=== PATIENT | female | born 1950 | race Two or more races ===

== ENCOUNTER 2021-01-31 08:28 | Emergency (ER) | payer MEDICARE ==
[~2021-01-31] VITALS: Ht 147.3 cm; Wt 50.9 kg
[2021-01-31] MEDS ORDERED: IV NORMAL SALINE 500ML BAG 500 ML IV ONE (09:00)
[2021-01-31] MEDS ORDERED: IPRATRPIUM/ALBUTEROL 0.5/2.5MG 3 ML NEBU. NEB ONE (09:00)
[2021-01-31] MEDS ORDERED: methylPREDNISolone SOD SUCC PF 125 MG/2 ML VIAL. IV ONE (09:00)
[2021-01-31 09:03] LABS: BASO % 1 % (0-3); EOS # 0.4 x10^3/uL (0.0-0.7); EOS % 7 % (0-3); HEMATOCRIT 41.4 % (36.0-47.0); HEMOGLOBIN 14.2 g/dL (12.0-15.5); LYMPH # 1.7 x10^3/uL (1.0-4.8); LYMPH % 28 % (24-48); MEAN CORPUSCULAR HEMOGLOBIN 32 pg (25-35); MEAN CORPUSCULAR HGB CONC 34 g/dL (31-37); MEAN CORPUSCULAR VOLUME 94 fL (79-100); MONO # 0.5 x10^3/uL (0.0-1.1); MONO % 8 % (0-9); NEUT # 3.4 x10^3/uL (1.8-7.7); NEUT % 56 % (31-73); PLATELET COUNT 227 x10^3/uL (140-400); RED BLOOD COUNT 4.41 x10^6/uL (3.50-5.40); RED CELL DISTRIBUTION WIDTH 14.1 % (11.5-14.5); WHITE BLOOD COUNT 6.1 x10^3/uL (4.0-11.0)
--- NOTE | 2021-01-31 09:15 | ED.ADGEN ---
Past Medical History Past Surgical History: No Surgical History Smoking Status: Current Every Day Smoker Alcohol Use: None General Adult EDM: Chief Complaint: CHEST WALL PAIN HPI: HPI: Patient is a 70 year old female coming in by private vehicle for chest tightness and shortness of breath. Patient says symptoms started last night. Says it feels like her asthma flares, has not had an asthma exacerbation for over a year. Patient has no change in her chronic baseline cough. Denies any fevers or GI complaints. Patient describes the chest tightness as a "elephant stepping on chest." She denies any other medical history, denies any cardiac history. Denies any significant medical history other than diabetes. Patient smokes about a pack of cigarettes daily and frequently uses marijuana, last use yesterday. Denies any alcohol or other drugs. Has been fully vaccinated against COVID-19 Review of Systems: Review of Systems: All other systems within normal limits except for as noted in the HPI Current Medications: Current Medications Medications (Trade) Dose Ordered Sig/Rahul Start Time Stop Time Status Last Admin Dose Admin Albuterol/ Ipratropium (Duoneb) 3 ml 1X ONCE 01/31/21 09:00 01/31/21 09:01 DC 01/31/21 09:26 3 ML Methylprednisolone Sodium Succinate (SOLU-Medrol 125MG VIAL) 125 mg 1X ONCE 01/31/21 09:00 01/31/21 09:01 DC 01/31/21 09:30 125 MG Sodium Chloride 500 ml @ 500 mls/hr 1X ONCE 01/31/21 09:00 01/31/21 09:59 DC 01/31/21 09:30 500 MLS/HR Allergies: Allergies: Allergies Coded Allergies Type Severity Reaction Last Updated Verified No Known Drug Allergies 01/31/21 No Physical Exam: PE: Constitutional: Well developed, well nourished, no acute distress, non-toxic appearance. [] HENT: Normocephalic, atraumatic, bilateral external ears normal, nose normal. [] Eyes: PERRLA, conjunctiva normal, no discharge. [] Neck: No rigidity, supple, no stridor. [] Cardiovascular: Regular rate and rhythm, brisk cap refill [] Lungs & Thorax: Non labored symmetric respirations, no tachypnea or respiratory distress. Bilateral decreased breath sounds with faint inspiratory wheezes [] Abdomen: Soft, nondistended. Skin: Warm, dry, no erythema, no rash. [] Back: Unremarkable Extremities: No deformities, range of motion grossly intact, no lower extremity edema [] Neurologic: Alert and oriented X 3, no focal deficits noted. [] Psychologic: Affect normal, judgement normal, mood normal. [] Current Patient Data: Labs: Laboratory Tests Test 01/31/21 08:48 01/31/21 09:27 01/31/21 09:57 White Blood Count 6.1 x10^3/uL (4.0-11.0) Red Blood Count 4.41 x10^6/uL (3.50-5.40) Hemoglobin 14.2 g/dL (12.0-15.5) Hematocrit 41.4 % (36.0-47.0) Mean Corpuscular Volume 94 fL (79-100) Mean Corpuscular Hemoglobin 32 pg (25-35) Mean Corpuscular Hemoglobin Concent 34 g/dL (31-37) Red Cell Distribution Width 14.1 % (11.5-14.5) Platelet Count 227 x10^3/uL (140-400) Neutrophils (%) (Auto) 56 % (31-73) Lymphocytes (%) (Auto) 28 % (24-48) Monocytes (%) (Auto) 8 % (0-9) Eosinophils (%) (Auto) 7 % (0-3) H Basophils (%) (Auto) 1 % (0-3) Neutrophils # (Auto) 3.4 x10^3/uL (1.8-7.7) Lymphocytes # (Auto) 1.7 x10^3/uL (1.0-4.8) Monocytes # (Auto) 0.5 x10^3/uL (0.0-1.1) Eosinophils # (Auto) 0.4 x10^3/uL (0.0-0.7) Basophils # (Auto) 0.0 x10^3/uL (0.0-0.2) Sodium Level 140 mmol/L (136-145) Potassium Level 3.3 mmol/L (3.5-5.1) L Chloride Level 105 mmol/L (98-107) Carbon Dioxide Level 26 mmol/L (21-32) Anion Gap 9 (6-14) Blood Urea Nitrogen 14 mg/dL (7-20) Creatinine 0.7 mg/dL (0.6-1.0) Estimated GFR (Cockcroft-Gault) 83.2 BUN/Creatinine Ratio 20 (6-20) Glucose Level 107 mg/dL (70-99) H Calcium Level 8.5 mg/dL (8.5-10.1) Magnesium Level 2.0 mg/dL (1.8-2.4) Total Bilirubin 0.4 mg/dL (0.2-1.0) Aspartate Amino Transferase (AST) 23 U/L (15-37) Alanine Aminotransferase (ALT) 31 U/L (14-59) Alkaline Phosphatase 81 U/L (46-116) Troponin I Quantitative < 0.017 ng/mL (0.000-0.055) LZ-Djp-J-Type Natriuretic Peptide 278 pg/mL (0-124) H Total Protein 6.5 g/dL (6.4-8.2) Albumin 3.6 g/dL (3.4-5.0) Albumin/Globulin Ratio 1.2 (1.0-1.7) O2 Saturation 97 % (92-99) Arterial Blood pH 7.48 (7.35-7.45) H Arterial Blood pCO2 at Patient Temp 26 mmHg (35-46) L Arterial Blood pO2 at Patient Temp 91 mmHg (65-108) Arterial Blood HCO3 19 mmol/L (21-28) L Arterial Blood Base Excess -3 mmol/L (-3-3) FiO2 21 Laboratory Tests 01/31/21 08:48 Laboratory Tests 01/31/21 09:27 Vital Signs: Vital Signs Date Time Temp Pulse Resp B/P (MAP) Pulse Ox O2 Delivery O2 Flow Rate FiO2 01/31/21 09:27 97 Room Air 01/31/21 08:43 97.7 70 24 138/74 (95) 97.7 EKG: EKG: Sinus rhythm, heart rate 60 bpm, left axis deviation, no ST elevation or depression, no ectopy normal intervals [] Heart Score: C/O Chest Pain: Yes HEART Score for Chest Pain: HEART Score for Chest Pain Response (Comments) Value History Slighlty/Non-Suspicious 0 ECG Normal 0 Age > 65 2 Risk Factors 1 or 2 Risk Factors 1 Troponin < Normal Limit 0 Total 3 Risk Factors: Risk Factors: DM, Current or recent (<one month) smoker, HTN, HLP, family history of CAD, obesity. Risk Scores: Score 0 - 3: 2.5% MACE over next 6 weeks - Discharge Home Score 4 - 6: 20.3% MACE over next 6 weeks - Admit for Clinical Observation Score 7 - 10: 72.7% MACE over next 6 weeks - Early Invasive Strategies Radiology/Procedures: Radiology/Procedures: [facility] [address] [place] [address] IMAGING REPORT Signed PATIENT: ALON KOHLI ACCOUNT: [id number] : 1950 LOCATION: ER AGE: 70 SEX: F EXAM STATUS: REG ER ORD. PHYSICIAN: MARC BRICE MD REASON: asthma PROCEDURE: CHEST PA & LATERAL Study: XR CHEST 2V Indication: Asthma. Comparison: None. Findings: The cardiomediastinal silhouette is within normal limits for size. Relatively symmetric latosha. Aortic calcific atherosclerosis. Nipple shadow noted on the right. No focal airspace infiltrate, pleural effusion or pneumothorax. Increased lung volumes and a somewhat increased AP dimension of the chest on the lateral view. Minimal chronic ventral wedging of a few vertebral bodies. The bones appear osteopenic. Impression: Increased lung volumes which could be related to COPD if there is a smoking history versus a manifestation of asthma. No focal airspace infiltrate or pleural effusion. Electronically signed by: VENKAT FUENTES MD (01/31/2021 9:21 AM) [facility] DICTATED and SIGNED BY: VENKAT FUENTES MD DATE: 01/31/21 [id number] [] Course & Med Decision Making: Course & Med Decision Making Pertinent Labs and Imaging studies reviewed. (See chart for details) [] Dragon Disclaimer: Dragon Disclaimer: This electronic medical record was generated, in whole or in part, using a voice recognition dictation system. Departure Departure Impression: Primary Impression: Asthma exacerbation Disposition: HOME / SELF CARE / HOMELESS Condition: STABLE Referrals: NO PCP (PCP) Patient Instructions: Asthma, Acute Bronchospasm Scripts Prednisone (PREDNISONE) 50 Mg Tablet 1 TAB PO DAILY for steroid, #5 TAB Prov: MARC BRICE MD 01/31/21 MARC BRICE MD Jan 31, 2021 09:14
--- NOTE | 2021-01-31 09:24 | RAD ---
Study: XR CHEST 2V Indication: Asthma. Comparison: None. Findings: The cardiomediastinal silhouette is within normal limits for size. Relatively symmetric latosha. Aortic calcific atherosclerosis. Nipple shadow noted on the right. No focal airspace infiltrate, pleural effusion or pneumothorax. Inc reased lung volumes and a somewhat increased AP dimension of the chest on the lateral view. Minimal chronic ventral wedging of a few vertebral bodies. The bones appear osteopenic. Impression: Increased lung volumes which could be related to COPD if there is a smoking history versus a manifest ation of asthma. No focal airspace infiltrate or pleural effusion. Electronically signed by: VENKAT FUENTES MD (01/31/2021 9:21 AM) [facility]
[2021-01-31 09:44] VITALS: BP 148/82
[2021-01-31 09:51] LABS: CALCIUM 8.5 mg/dL (8.5-10.1); CREATININE 0.7 mg/dL (0.6-1.0); GFR 83.2; POTASSIUM 3.3 mmol/L (3.5-5.1)
[2021-01-31 10:00] LABS: ALBUMIN 3.6 g/dL (3.4-5.0); ALBUMIN/GLOBULIN RATIO 1.2 (1.0-1.7); TOTAL BILIRUBIN 0.4 mg/dL (0.2-1.0); TOTAL PROTEIN 6.5 g/dL (6.4-8.2)
[2021-01-31 10:02] LABS: BASE EXCESS ABG -3 mmol/L (-3-3); HCO3 ABG 19 mmol/L (21-28); PCO2 ABG 26 mmHg (35-46); PO2 ABG 91 mmHg (65-108); SAT O2 ABG 97 % (92-99)
[2021-01-31 10:04] LABS: FIO2 ABG 21
[2021-01-31 10:37] LABS: BILIRUBIN,URINE NEGATIVE (NEG); CLARITY,URINE CLEAR; COLOR,URINE YELLOW; NITRITE,URINE NEGATIVE (NEG); PROTEIN,URINE NEGATIVE (NEG-TRACE); UROBILINOGEN,URINE 0.2 mg/dL (0.2 mg/dL)
[2021-01-31] MEDS ORDERED: PRED50TA PO (10:53)
[2021-01-31 11:02] LABS: BACTERIA,URINE 0 /HPF (0-FEW); RBC,URINE 0 /HPF (0-2)
--- NOTE | 2021-01-31 15:08 | EKG ---
[facility] [address] [place] [address] Test Date: 2021-01-31 Test Time: 08:43:04 Pat Name: ALON KOHLI Department: Room: Gender: F Mill Set Up: : 1950 Requested By: MARC BRICE Order Number: [id number] Reading MD: Michael Hawthorne Measurements Intervals [place] Rate: 66 P: 49 CO: 158 QRS: -4 QRSD: 84 T: 53 QT: 416 QTc: 438 Interpretive Statements SINUS RHYTHM LEFTWARD AXIS Electronically Signed On 02-02-2021 17:13:55 CDT by Michael Hawthorne
== END 2021-01-31 11:18 | disposition home or self-care (01) ==
LOC: ER 08:28
DX: J45.901 Unspecified asthma with (acute) exacerbation (principal)
CPT/HCPCS: 36415; 71046; 80053; 81001; 82805; 83735; 83880; 84484; 85025; 87086; 93005; 94640; 96361; 96374; 99285; J2930; J7040

== ENCOUNTER 2021-02-13 22:49 | Emergency (ER) | payer MEDICARE ==
[~2021-02-13] VITALS: Ht 147.3 cm; Wt 50.9 kg
[~2021-02-13 22:49] MED LIST: PRED50TA PO
[2021-02-13 22:59] VITALS: BP 134/88
[2021-02-13] MEDS ORDERED: IPRATRPIUM/ALBUTEROL 0.5/2.5MG 3 ML NEBU. NEB ONE ×2 (23:00→23:15)
--- NOTE | 2021-02-13 23:09 | PHYS DOC ---
Past Medical History Past Medical History: Asthma Past Surgical History: No Surgical History Smoking Status: Current Every Day Smoker Alcohol Use: None General Adult EDM: Chief Complaint: ASTHMA HPI: HPI: Patient is a 70 year old female who presents to the emergency department complaining of shortness of breath and chest tightness for the last several days which he states is related to her asthma. She tried some breathing treatments at home with limited relief. She states she has had similar symptoms in the past. Never been admitted for asthma. was on prednisone 2 weeks ago for asthma. The patient denies nausea, vomiting, fever, chills, chest pain other than the chest tightness related to breathing, abdominal pain, urinary symptoms, cough, recent trauma, or any other complaints. Review of Systems: Review of Systems: ROS otherwise negative except for what was mentioned in HPI Heart Score: C/O Chest Pain: No Current Medications: Current Medications Medications (Trade) Dose Ordered Sig/Rahul Start Time Stop Time Status Last Admin Dose Admin Albuterol/ Ipratropium (Duoneb) 3 ml 1X ONCE 02/13/21 23:00 02/13/21 23:01 DC Allergies: Allergies: Allergies Coded Allergies Type Severity Reaction Last Updated Verified No Known Drug Allergies 01/31/21 No Physical Exam: PE: Constitutional: No acute distress, non-toxic appearance. HENT: Atraumatic, bilateral external ears normal, nose normal. Eyes: PERRLA, EOMI, conjunctiva normal, no discharge. Neck: Normal range of motion, supple, no stridor. Cardiovascular: Heart rate regular rhythm. 2+ radial pulses Lungs & Thorax: No respiratory distress, symmetrical expansion. Bilateral breath sounds clear to auscultation Abdomen: Soft, no tenderness Skin: Warm, dry. Extremities: No tenderness, no cyanosis, ROM intact, no edema. Neurologic: Alert and oriented X 3, normal motor function, normal sensory function, no focal deficits noted. Non ataxic gait. GCS 15. Psychologic: Affect normal, judgment normal, mood normal. Current Patient Data: Vital Signs: Vital Signs Date Time Temp Pulse Resp B/P (MAP) Pulse Ox O2 Delivery O2 Flow Rate FiO2 02/13/21 23:10 97 Room Air 02/13/21 22:59 97.9 64 18 134/88 (103) 97 Room Air 97.9 EKG: EKG: Time read: 2306 Normal sinus rhythm rate of 61, no ST-T wave changes, no ectopic beats, normal axis, normal [place], QRS, and QTc intervals. Impression: Normal EKG. interpreted by me, Mandeep Nunez D.O. Course & Med Decision Making: Course & Med Decision Making Patient felt completely better after breathing treatment in the ER, her lungs are clear, she was discharged with nebulizer solution as requested Departure Departure Impression: Primary Impression: Asthma exacerbation Disposition: HOME / SELF CARE / HOMELESS Condition: STABLE Referrals: NO PCP (PCP) Patient Instructions: Asthma, Adult, [id number] Additional Instructions: You were seen for an asthma exacerbation. Your exacerbation could have been caused by a Viral Upper Respiratory Tract Infection. You should be checking your peak flows daily and taking all of your controller and rescue inhalers as previously prescribed. Please take any new medications you were prescribed. It may take a few days for the steroids to begin to work, but use your albuterol inhaler as needed for the next few days to help with symptoms. Return to the ED if you develop worsening cough, shortness of breath, fever > 101, chest pain, or any other new or concerning symptoms or discomforts. You need to follow up with your primary care doctor as soon as possible as a severe asthma exacerbation can be fatal. Scripts Albuterol Sulfate (ALBUTEROL SULFATE NEB SOLN) 2.5 Mg/3 Ml Vial.neb 1 VIAL NEB PRN Q4HRS, #50 VIAL Prov: MANDEEP NUNEZ DO 02/13/21 MANDEEP NUNEZ DO Feb 13, 2021 23:09
[2021-02-13] MEDS ORDERED: DEXAMETHASONE 4 MG TABLET PO ONE (23:15)
[2021-02-13] MEDS ORDERED: ALBU2.5V5 NEB (23:34)
== END 2021-02-13 23:42 | disposition home or self-care (01) ==
LOC: ER 22:49
DX: J45.901 Unspecified asthma with (acute) exacerbation (principal); F17.200 Nicotine dependence, unspecified, uncomplicated
CPT/HCPCS: 94640; 99283

== ENCOUNTER 2021-02-14 22:42 | Emergency (ER) | payer MEDICARE ==
[~2021-02-14] VITALS: Ht 147.3 cm; Wt 50.9 kg
[~2021-02-14 22:42] MED LIST changes: +ALBU2.5V5 NEB
[2021-02-14] MEDS ORDERED: predniSONE 10 MG TABLET PO ONE (23:30)
[2021-02-14] MEDS ORDERED: IPRATRPIUM/ALBUTEROL 0.5/2.5MG 3 ML NEBU. NEB ONE (23:30)
--- NOTE | 2021-02-14 23:32 | PHYS DOC ---
Past Medical History Past Medical History: Asthma Past Surgical History: No Surgical History Smoking Status: Current Every Day Smoker Alcohol Use: None General Adult HPI: HPI: Patient is a 70 year old female with history of asthma/COPD who presents with shortness of breath. States this is been ongoing, and a recurrent issue for her for the past few weeks. States that she feels like she has tightness, and a difficult time taking a full breath. Denies chest pain. Was seen on 01/31 and given a prescription for prednisone. Was seen last night on 02/13, and was discharged after feeling improved after a DuoNeb. She was prescribed an albuterol nebulizer to go home with, but was unable to pick this up due to her pharmacy being closed today. States that she used albuterol every 1-2 hours at home, and did not have improvement of her symptoms. She does state that she has had a cough, that has been productive of white/yellow sputum, which is a change from her baseline. No fever/chills. No sick contacts. No lower extremity edema. She has a 20-year tobacco smoking history, but has quit tobacco use altogether. For the past 10 years states that she has been smoking marijuana essentially daily. Review of Systems: Review of Systems: Constitutional: Denies fever or chills. [] Eyes: Denies change in visual acuity. [] HENT: Denies nasal congestion or sore throat. [] Respiratory: Reports cough and shortness of breath [] Cardiovascular: Denies chest pain or edema. [] GI: Denies abdominal pain, nausea, vomiting, bloody stools or diarrhea. [] : Denies dysuria. [] Musculoskeletal: Denies back pain or joint pain. [] Integument: Denies rash. [] Neurologic: Denies headache, focal weakness or sensory changes. [] Endocrine: Denies polyuria or polydipsia. [] Lymphatic: Denies swollen glands. [] Psychiatric: Denies depression or anxiety. [] Heart Score: C/O Chest Pain: No Allergies: Allergies: Allergies Coded Allergies Type Severity Reaction Last Updated Verified No Known Drug Allergies 01/31/21 No Physical Exam: PE: Constitutional: Well developed, well nourished, no acute distress, non-toxic appearance. [] HENT: Normocephalic, atraumatic, bilateral external ears normal, oropharynx moist, no oral exudates, nose normal. [] Eyes: PERRLA, EOMI, conjunctiva normal, no discharge. [] Neck: Normal range of motion, no tenderness, supple, no stridor. [] Cardiovascular:Heart rate regular rhythm, no murmur [] Lungs & Thorax: Bilateral breath sounds clear to auscultation, no audible wheezes [] Abdomen: Bowel sounds normal, soft, no tenderness, no masses, no pulsatile masses. [] Skin: Warm, dry, no erythema, no rash. [] Back: No tenderness, no CVA tenderness. [] Extremities: No tenderness, no cyanosis, no clubbing, ROM intact, no edema. [] Neurologic: Alert and oriented X 3, normal motor function, normal sensory function, no focal deficits noted. [] Psychologic: Affect normal, judgement normal, mood normal. [] EKG: EKG: Sinus rhythm. Rate 64. Normal axis. Normal intervals. QTc 421. Normal R wave progression. No Q waves, significant T wave inversions, or ST elevation/depression. Some baseline wander in V3. Impression: Normal ECG [] Radiology/Procedures: Radiology/Procedures: [] Impression: [facility] [address] [place], [place] [id number] IMAGING REPORT Signed PATIENT: ALON KOHLI ACCOUNT: [id number] : 1950 LOCATION: ER AGE: 70 SEX: F EXAM STATUS: REG ER ORD. PHYSICIAN: JENNY RUSSELL MD REASON: sob PROCEDURE: CHEST AP ONLY EXAMINATION: XR CHEST 1V CLINICAL HISTORY: Shortness of breath EXAM DATE/TIME: 02/14/2021 11:38 PM COMPARISON: 01/31/2021 FINDINGS: Lines, Tubes, and Devices: None. Cardiomediastinal Silhouette: Normal heart size. Aortic atherosclerotic calcification. Lungs and Pleura: Mild patchy opacities in the right greater than left lower lung zones, similar to prior study. No evidence of pleural effusion. Pulmonary vasculature within normal limits. Bones and Soft Tissues: Degenerative changes in the thoracic spine. IMPRESSION: Mild patchy airspace disease in the right greater than left lower lung zones, similar to prior study. Electronically signed by: Flo Love DO (02/15/2021 12:42 AM) [facility] DICTATED and SIGNED BY: FLO LOVE DO DATE: 02/15/21 [id number] Course & Med Decision Making: Course & Med Decision Making Pertinent Labs and Imaging studies reviewed. (See chart for details) Patient is 70-year-old female with history of smoking, COPD/asthma who presents for repeat visit for shortness of breath. Has been seen several times this month, and typically feels better after nebulizer treatments. On arrival is afebrile, hemodynamically stable. Normal work of breathing. Clear lung exam without obvious wheezes. Will check ekg and troponin given chest tightness, but seems much less likely to be due to ACS. Normal vitals and no e/o DVT, doubt PE. We will trial DuoNeb and prednisone. She does describe cough, sputum change concerning for potential COPD exacerbation or pneumonia, that may benefit from antibiotics especially given the duration of symptoms. Chest x-ray ordered. Covid swab sent. 1132 EKG non-ischemic, trop negative. CXR with patchy airspace disease. WBC elevated to 13k. Feeling improved after duoneb, requesting discharge. Will send with Augmentin and Doxycycline to treat for CAP. 1248 Dragon Disclaimer: Gordo Disclaimer: This electronic medical record was generated, in whole or in part, using a voice recognition dictation system. Departure Departure Impression: Primary Impression: CAP (community acquired pneumonia) Disposition: HOME / SELF CARE / HOMELESS Condition: STABLE Additional Instructions: You have some evidence of pneumonia on your chest x-ray. Please take antibiotics as prescribed. Please schedule follow-up appoint with your primary care doctor. If your symptoms continue, you may need to be seen by a specialist. Please return to the emergency department if your shortness of breath worsens. Scripts Doxycycline Monohydrate (DOXYCYCLINE MONOHYDRATE) 100 Mg Capsule 1 CAP PO BID for 7 Days, #14 CAP Prov: JENNY RUSSELL MD 02/15/21 Amoxicillin/Potassium Clav (AUGMENTIN 875-125 TABLET) 1 Each Tablet 1 TAB PO Q12HR for 7 Days, #14 TAB Prov: JENNY RUSSELL MD 02/15/21 JENNY RUSSELL MD Feb 14, 2021 23:32
[2021-02-14 23:59] LABS: BASO % 0 % (0-3); EOS % 0 % (0-3); HEMATOCRIT 39.5 % (36.0-47.0); HEMOGLOBIN 13.3 g/dL (12.0-15.5); LYMPH # 0.9 x10^3/uL (1.0-4.8); LYMPH % 7 % (24-48); MEAN CORPUSCULAR HEMOGLOBIN 32 pg (25-35); MEAN CORPUSCULAR HGB CONC 34 g/dL (31-37); MEAN CORPUSCULAR VOLUME 93 fL (79-100); MONO # 0.9 x10^3/uL (0.0-1.1); MONO % 7 % (0-9); NEUT # 11.2 x10^3/uL (1.8-7.7); NEUT % 86 % (31-73); PLATELET COUNT 211 x10^3/uL (140-400); RED BLOOD COUNT 4.23 x10^6/uL (3.50-5.40); RED CELL DISTRIBUTION WIDTH 14.1 % (11.5-14.5)
[2021-02-15 00:03] LABS: CALCIUM 8.8 mg/dL (8.5-10.1); CREATININE 0.9 mg/dL (0.6-1.0); GFR 62.3
--- NOTE | 2021-02-15 00:04 | EKG ---
[facility] [address] [place] [address] Test Date: 2021-02-14 Test Time: 23:39:59 Pat Name: ALON KOHLI Department: Room: Gender: F Prize Fighter: : 1950 Requested By: JENNY RUSSELL Order Number: [id number] Reading MD: Reg Jovel MD Measurements Intervals [place] Rate: 64 P: 38 ND: 136 QRS: 19 QRSD: 88 T: 30 QT: 408 QTc: 421 Interpretive Statements SINUS RHYTHM Electronically Signed On 02-15-2021 10:19:29 CDT by Reg Jovel MD
[2021-02-15 00:42] VITALS: BP 133/64
--- NOTE | 2021-02-15 00:44 | RAD ---
EXAMINATION: XR CHEST 1V CLINICAL HISTORY: Shortness of breath EXAM DATE/TIME: 02/14/2021 11:38 PM COMPARISON: 01/31/2021 FINDINGS: Lines, Tubes, and Devices: None. Cardiomediastinal Silhouette: Normal heart size. Aortic atherosclerotic calcification. Lungs and Pleura: Mild patchy opacities in the right greater than left lower lung zones, similar to p rior study. No evidence of pleural effusion. Pulmonary vasculature within normal limits. Bones and Soft Tissues: Degenerative changes in the thoracic spine. IMPRESSION: Mild patchy airspace disease in the right greater than left lower lung zones, similar to prior study. Electronically signed by: Flo Dunlap DO (02/15/2021 12:42 AM) [facility]ANDY
[2021-02-15] MEDS ORDERED: AMOX1TAB61 PO (00:50)
[2021-02-15] MEDS ORDERED: DOXY-181 PO (00:50)
--- NOTE | 2021-02-16 17:20 | NUR ---
IP: Informed pt of negative covid test. Pt verbalized understanding.
== END 2021-02-15 01:03 | disposition home or self-care (01) ==
LOC: ER 22:42
DX: J18.9 Pneumonia, unspecified organism (principal); Z20.822 Contact with and (suspected) exposure to COVID-19; J44.9 Chronic obstructive pulmonary disease, unspecified; Z72.0 Tobacco use
CPT/HCPCS: 36415; 71045; 80048; 84484; 85025; 87426; 93005; 94640; 99285; J7512; U0003; U0005